=== PATIENT | male | born 1980 | race Caucasian/White ===

== ENCOUNTER 2018-12-14 05:45 | Emergency (ER) | payer MEDICAID ==
[~2018-12-14] VITALS: Ht 172.7 cm; Wt 60.0 kg
--- NOTE | 2018-12-14 05:50 | NUR ---
PT BROUGHT IN BY [facility], FOUND PASSED OUT IN BATHROOM AT [facility] BY SECURITY. MEDIC STATES PT WAS AA&O X4 WITH [facility] OF 15 UPON THEIR ARRIVAL BUT PT WAS NODDING OFF. GIVEN 0.5MG NARCAN VIA NASAL. PT PUPILS 1MM AND UNREPONSIVE. PT ADMITS TO USING 'HEROIN AND WEED' TONIGHT AND MAY HAVE HAD A BEER EARLY IN THE EVENING. PT ANSWERING QUESTIONS APPROPRIATELY. NODS OFF BUT RESPONDS TO VOICE
--- NOTE | 2018-12-14 05:54 | NUR ---
[facility] CANO REQUESTS THAT WE CALL THEM WHEN THE PT IS DISCHARGED SO THEY CAN TAKE HIM TO [facility]. CASE # [id number], . OFFICER WINSTON IS THE OFFICER WHO BROUGHT HIM IN WITH EMS
[2018-12-14] MEDS ORDERED: SODIUM CHLORIDE FLUSH 10ML SYR IVF ONE (06:00)
[2018-12-14 06:29] LABS: BASOPHILS # (AUTO) 0.02 x10^3/uL (0-0.1); BASOPHILS % (AUTO) 0 % (0-1); EOSINOPHILS # (AUTO) 0.12 x10^3/uL (0-0.4); EOSINOPHILS % (AUTO) 2 % (1-7); LYMPHOCYTES # (AUTO) 1.57 x10^3/uL (1-3.4); LYMPHOCYTES % (AUTO) 27 % (22-44); MD NO; MEAN CORPUSCULAR HEMOGLOBIN 31.2 pg (27.5-34.5); MEAN CORPUSCULAR HGB CONC 33.5 g/dL (33.2-36.2); MEAN CORPUSCULAR VOLUME 93.1 fL (81-97); MONOCYTES # (AUTO) 0.54 x10^3/uL (0.2-0.8); MONOCYTES % (AUTO) 9 % (2-9); NEUTROPHILS # (AUTO) 3.47 x10^3/uL (1.8-6.8); NEUTROPHILS % (AUTO) 61 % (42-75); PLATELET COUNT 222 x10^3/uL (130-400); RED BLOOD COUNT 4.43 x10^6/uL (4.38-5.82); RED CELL DISTRIBUTION WIDTH 14.9 % (9.4-14.8)
--- NOTE | 2018-12-14 06:30 | NUR ---
PT RESTING QUIETLY, NO DISTRESS NOTED, RESPONDS TO VOICE, GIVEN WATER PER REQUEST
[2018-12-14 06:38] LABS: ALBUMIN 3.9 g/dL (3.4-5.0); ANION GAP 4 mmol/L (5-15); CALCIUM 8.8 mg/dL (8.5-10.1); CHLORIDE 109 mmol/L (98-107)
[2018-12-14 06:39] LABS: CREATININE 0.84 mg/dL (0.7-1.3)
--- NOTE | 2018-12-14 06:52 | NUR ---
REPORT GIVEN TO MALCOLM RIZZO
--- NOTE | 2018-12-14 06:54 | NUR ---
RECEIVED REPORT FROM FLAVIA HAWK RN'S. PT RESTING ON MAXRSHAYLA. JAVAD. VSS. MONITORS IN PLACE.
--- NOTE | 2018-12-14 07:39 | NUR ---
PT RESTING ON GURNEY. NADN. VSS. PT O2 SATS REMAIN IN THE MID 90'S ON RA. PT EASILY AROUSABLE.
[2018-12-14] MEDS ORDERED: NALOXONE 0.4 MG/ML, 1ML ONE ×2 (08:02→08:52)
[2018-12-14] MEDS: NALOXONE 0.4 MG/ML, 1ML IVPush PRN ×2 (08:05→08:55)
--- NOTE | 2018-12-14 08:06 | NUR ---
PT MORE DIFFICULT TO AROUSE. MARIAH BONDS NOTIFIED. FABRICE PROVIDED. PT REMAINS ON RA SATING MID .
--- NOTE | 2018-12-14 08:07 | NUR ---
PT IMMEDIATELY MORE AROUSABLE.
--- NOTE | 2018-12-14 08:56 | NUR ---
PT AGAIN DIFFICULT TO AROUSE. PT MEDICATED PER MAR.
--- NOTE | 2018-12-14 09:21 | NUR ---
PT EASILY AROUSABLE IN ROOM. O2 SATS REMAIN IN THE HIGH 90'S RA. WILL CONTINUE TO MONITOR.
[2018-12-14 09:22] VITALS: BP 121/84
--- NOTE | 2018-12-14 09:43 | NUR ---
PT AMBULATORY W/ STEADY GAIT. PT AOX4. PIV REMOVED. EDPA AWARE AND OKAY W/ DC. [facility] NOTIFIED AT [phone] THAT PT IS READY FOR PICKUP.
--- NOTE | 2018-12-14 10:11 | NUR ---
[facility] AT BEDSIDE TO TAKE PT TO INTERMEDIATE.
== END 2018-12-14 10:14 | disposition home or self-care (01) ==
LOC: ED 06:29
DX: T40.1X1A Poisoning by heroin, accidental (unintentional), initial encounter (principal); Y92.89 Other specified places as the place of occurrence of the external cause
CPT/HCPCS: 36415; 71045; 80048; 80307; 82040; 85025; 93005; 96374; 96375; 99284; J2310